=== PATIENT | male | born 1930 | race Caucasian/White ===

== ENCOUNTER → 2017-11-02 | Day surgery (SDC) | payer OTHER ==
[2017-10-26 13:28] LABS: URINE BILIRUBIN NEGATIVE (Negative); URINE BLOOD 2+ (Negative); URINE CLARITY CLEAR; URINE COLOR YELLOW; URINE GLUCOSE-RANDOM NEGATIVE (Negative); URINE KETONES NEGATIVE (Negative); URINE NITRITE-REFLEX NEGATIVE (Negative); URINE PROTEIN TRACE (Negative); URINE SPECIFIC GRAVITY >= 1.030 (1.005-1.030); URINE UROBILINOGEN 0.2 E.U./dl (0.2-1.0)
[2017-10-26 13:29] LABS: URINE LEUKOCYTES-REFLEX 2+ (Negative)
[2017-10-26 13:33] LABS: BACTERIA-REFLEX >30 Many /HPF (None Seen); SQUAMOUS 0-3 Few /LPF (0-3); URINE WBC-REFLEX >25 Many /HPF (0-5)
[2017-10-26 13:34] LABS: CASTS None Seen /LPF (None Seen); CRYSTALS None Seen /LPF (None Seen); MUCUS None Seen strn/LPF (None Seen)
[2017-10-26 13:39] LABS: ABSOLUTE BASOPHILS 0.1 thou/uL (0.0-0.2); ABSOLUTE EOSINOPHILS 0.3 thou/uL (0.0-0.7); ABSOLUTE LYMPHOCYTES 1.4 thou/uL (0.8-5.3); ABSOLUTE MONOCYTES 0.5 thou/uL (0.0-1.2); ABSOLUTE NEUTROPHILS 4.7 thou/uL (1.6-8.1); BASOPHILS 0.8 %; EOSINOPHILS 4.1 %; HEMATOCRIT 33.4 % (42.0-52.0); HEMOGLOBIN 11.3 gm/dL (14.0-18.0); LYMPHOCYTES 20.5 %; MCH 30.8 pg (26.0-34.0); MCHC 33.9 g/dL (28.0-37.0); MONOCYTES 7.2 %; MPV 8.3 fl. (7.2-11.1); NUCLEATED RBCS 0 /100WBC; PLATELET COUNT* 199 thou/uL (150-400); POLYS 67.4 %; RBC 3.67 mil/uL (4.50-6.00); RDW-CV 14.7 % (10.5-14.5); WBC 6.9 thou/uL (4.0-11.0)
[2017-10-26 13:46] LABS: CALCIUM 9.5 mg/dL (8.5-10.1); CREATININE 1.1 mg/dL (0.6-1.3); POTASSIUM 4.1 mmol/L (3.5-5.1)
[~2017-11-02] MED LIST: ASPIRIN325 PO; AUGMENTIN 875-1 EACH PO; BACTRIM DS TAB1 EAC1 PO; BACTRIM DS TAB1 EACH PO; BROMSITE5 ML OPHTHALMIC; CEFUROXIME250 MG PO; CENTRUM SILVER1 EAC4 PO; CHLORTHALIDONE25 MG PO; CHLORTHALIDONE50 MG PO; CINNAMON500 MG PO; CITRACAL SOFT1 EACH PO; DIFLUCAN200 MG PO; FLOMAX0.4 MG PO; FOLIC ACID1 MG PO; GARLIC500 M1 PO; HYDROCODONE-AP1 EAC6 PO; IRON325 M1 PO; KEFLEX500 MG PO; LEVSIN0.125 MG SUBLING; LIPITOR 20 MG T20 M1 PO; LOPRESSOR25 PO; LOVASTAT20 PO; MILK THISTLE500 MG PO; MOBIC7.5 MG PO; NEURONTIN 300300 M1 PO; NORCO 5-325 TA1 EAC1 PO; OMEGA-31000 M1 PO; PHENAZOPYRIDIN200 M2 PO; PRED FORTE 1% EY5 M1 OP; PRED FORTE 1% EY5 M1 OPHTHALMIC; PREVAGEN PO; PROBIOTIC1 EAC1 PO; PROSCAR 5MG TABL5 MG PO; RED YEAST RICE600 MG PO; SENNA S TABLET1 EACH PO; SORINE 80 MG TA80 M1 PO; SORINE 80 MG TA80 MG PO; TRAMADOL 50 MG50 MG PO; TYLENOL EXTRA500 MG PO; TYLENOL325 MG PO; VITAMIN B COMP1 EACH PO; VITAMIN B-12500 MCG PO; VITAMIN D-32000 UNIT PO
--- NOTE | ~2017-11-02 | OP ---
[address] [address] OPERATIVE REPORT Name: KATJA GUARDADO Room: [facility]#: [id number] Admission: 11/02/17 Attend Phys: Kai Mcmillan MD Discharge: Date of : 32 Report #: [id number] THIS REPORT FOR: //name// For operative report details, please see the post operative note. By: 0610Medical Records Staff SATURNINO /DAVID
== END | disposition home or self-care (01) ==
LOC: M.SUR 06:45
PROVIDERS: Urology
DX: N40.1 Benign prostatic hyperplasia with lower urinary tract symptoms (principal); I25.2 Old myocardial infarction; Z85.038 Personal history of other malignant neoplasm of large intestine; Z98.890 Other specified postprocedural states; Z79.899 Other long term (current) drug therapy; Z79.82 Long term (current) use of aspirin; Z79.891 Long term (current) use of opiate analgesic

== ENCOUNTER 2017-11-04 14:20 | Inpatient (IN) | payer OTHER ==
[~2017-11-04] VITALS: Ht 172.7 cm; Wt 63.5 kg
[~2017-11-04 14:20] MED LIST changes: -AUGMENTIN 875-1 EACH PO; -NEURONTIN 300300 M1 PO; -PROBIOTIC1 EAC1 PO; -SENNA S TABLET1 EACH PO
[2017-11-04 14:21] VITALS: BP 225/99
[2017-11-04 14:57] LABS: HEMATOCRIT 38.2 % (42.0-52.0); HEMOGLOBIN 12.8 gm/dL (14.0-18.0); MCH 30.1 pg (26.0-34.0); MCHC 33.6 g/dL (28.0-37.0); MCV 89.7 fL (80.0-100.0); MPV 8.8 fl. (7.2-11.1); NUCLEATED RBCS 0 /100WBC; PLATELET COUNT* 187 thou/uL (150-400); RBC 4.26 mil/uL (4.50-6.00); WBC 13.8 thou/uL (4.0-11.0)
[2017-11-04 15:04] LABS: ANION GAP 11 mmol/L (7-16); BUN 29 mg/dL (7-18); CALCIUM 9.7 mg/dL (8.5-10.1); CHLORIDE 98 mmol/L (98-107); CO2 22 mmol/L (21-32); CREATININE 1.6 mg/dL (0.6-1.3); GLUCOSE 170 mg/dL (70-99); POTASSIUM 4.3 mmol/L (3.5-5.1); SODIUM 131 mmol/L (136-145)
[2017-11-04 15:11] LABS: ALBUMIN 3.8 g/dL (3.4-5.0); ALKALINE PHOSPHATASE 98 U/L (46-116); LIPASE 111 U/L (73-393); SGOT 22 U/L (15-37); SGPT 18 U/L (30-65); TOTAL BILIRUBIN 1.1 mg/dL (<0.1-1.0); TOTAL PROTEIN 7.7 g/dL (6.4-8.2); TROPONIN-I LEVEL <0.06 ng/mL (<0.06)
[2017-11-04 15:24] LABS: ABSOLUTE BASOPHILS 0.1 thou/uL (0.0-0.2); ABSOLUTE EOSINOPHILS 0.3 thou/uL (0.0-0.7); ABSOLUTE LYMPHOCYTES 0.6 thou/uL (0.8-5.3); ABSOLUTE MONOCYTES 0.4 thou/uL (0.0-1.2); ABSOLUTE NEUTROPHILS 12.4 thou/uL (1.6-8.1)
[2017-11-04 15:25] LABS: MACROCYTES Occasional; PLATELET ESTIMATE ADEQUATE
--- NOTE | 2017-11-04 15:38 | NUR ---
CT COMPLETED PT RETURNED TO ED
[2017-11-04 16:26] LABS: URINE BILIRUBIN NEGATIVE (Negative); URINE BLOOD 3+ (Negative); URINE CLARITY CLEAR; URINE COLOR YELLOW; URINE GLUCOSE-RANDOM NEGATIVE (Negative); URINE KETONES NEGATIVE (Negative); URINE LEUKOCYTES-REFLEX 1+ (Negative); URINE NITRITE-REFLEX NEGATIVE (Negative); URINE PROTEIN 2+ (Negative); URINE UROBILINOGEN 0.2 E.U./dl (0.2-1.0)
[2017-11-04 16:41] LABS: CASTS None Seen /LPF (None Seen); CRYSTALS None Seen /LPF (None Seen); MUCUS 0-3 Light strn/LPF (None Seen); SQUAMOUS 0-3 Few /LPF (0-3); URINE WBC-REFLEX 6-15 Few /HPF (0-5); YEAST-REFLEX Present (None Seen)
[2017-11-04 17:17] VITALS: BP 133/50
[2017-11-04 17:56] VITALS: BP 134/49
--- NOTE | 2017-11-04 18:31 | NUR ---
PATIENT CAME FROM THE ER VIA CART IN STABLE CONDITION. VITAL SIGNS STABLE ON ROOM AIR, NO COMPLAINTS OF ANY PAIN AT THIS TIME. IV IN RIGHT AC WORKS WELL WITH FLUIDS RUNNING AND ANTIBIOTICS. CLARK IN PLACE DRAINING YELLOW URINE. COLOSTOMY IN PLACE. PATIENT IS ALERT AND ORIENTED, IS AT BEDSIDE. CALL LIGHT IS IN REACH, ADMISSION ASSESSMENT AND EDUCATION DONE. WILL CONTINUE TO MONITOR.
[2017-11-04 20:00] VITALS: BP 119/46
[2017-11-05] VITALS (8 sets, daily range): BP systolic 129–159; BP diastolic 45–65
--- NOTE | 2017-11-05 05:31 | NUR ---
PT SLEPT SOUNDLY DURING THE NIGHT, NEW IV PLACED LAST NIGHT, IV FLUIDS INFUSED, PLEASANT, HARD OF HEARING , COLOSTOMY IN PLACE, SCD'S ON, CALL LIGHT IN REACH, BED ALARM ON FOR SAFETY, WILL CONTINUE TO MONITOR
--- NOTE | 2017-11-05 12:20 | EKG ---
[place] [address] ELECTROCARDIOGRAM REPORT Name: DEBBYKATJA Room: [address] ADM IN M.R.#: [id number] Admission: 11/04/17 Attend Phys: Chino Paiz, Discharge: Date of : 31 Report #: [id number] THIS REPORT FOR: //name// [facility] ED Test Date: 2017-11-04 Test Time: 14:39:03 Pat Name: KATJA GUARDADO Department: Room: [facility] Gender: M Shift Supervisor Melting: JIM : 1930 Requested By: Liliana Palmer Order Number: [id number] MD: Raudel Antoine Measurements Intervals [place] Rate: 96 P: [place]: QRS: -67 QRSD: 129 T: 48 QT: 391 QTc: 495 Interpretive Statements sinus rhythm Ventricular premature complex RBBB and LAFB Compared to ECG 09/06/2017 14:21:33 Ventricular premature complex(es) now present Atrial premature complex(es) no longer present Electronically Signed On 11-05-2017 12:20:00 PLUG CUTTING MACHINE OPERATOR by Raudel Antoine [email or web address] <ELECTRONICALLY SIGNED> By: Raudel Antoine MD, FAC 11/05/17 1220 1439 1439 Raudel Antoine MD, [facility] /EPI
[2017-11-05 15:30] LABS: MCH 31.4 pg (26.0-34.0); MCHC 34.4 g/dL (28.0-37.0); MCV 91.1 fL (80.0-100.0); RBC 3.51 mil/uL (4.50-6.00); WBC 6.5 thou/uL (4.0-11.0)
[2017-11-05 15:40] LABS: CALCIUM 9.3 mg/dL (8.5-10.1); CREATININE 1.4 mg/dL (0.6-1.3); POTASSIUM 4.2 mmol/L (3.5-5.1)
--- NOTE | 2017-11-05 18:19 | NUR ---
PATIENT IS ALERT AND ORIENTED NO COMPLAINTS OF ANY KIND TODAY. CLARK IS DRAINING WELL, LIGHT YELLOW URINE. VITAL SIGNS ARE STABLE ON ROOM AIR. SURGERY CONSULTED ON [facility] AND SAID THEY WOULD FOLLOW UP OUTPATIENT IT DOES NOT NEED ADDRESSED INPATIENT. COLOSTOMY IN PLACE. CALL LIGHT IS IN REACH, WILL CONTINUE TO MONITOR.
[2017-11-06] VITALS: BP 148/52
[2017-11-06 03:45] VITALS: BP 148/53
[2017-11-06 04:27] LABS: HEMATOCRIT 30.9 % (42.0-52.0); HEMOGLOBIN 10.6 gm/dL (14.0-18.0); MCH 30.9 pg (26.0-34.0); MCHC 34.4 g/dL (28.0-37.0); MCV 89.9 fL (80.0-100.0); MPV 9.3 fl. (7.2-11.1); RBC 3.44 mil/uL (4.50-6.00); RDW-CV 14.8 % (10.5-14.5); WBC 6.5 thou/uL (4.0-11.0)
[2017-11-06 04:39] LABS: CALCIUM 9.1 mg/dL (8.5-10.1); CREATININE 1.1 mg/dL (0.6-1.3); MAGNESIUM 1.8 mg/dL (1.8-2.4)
--- NOTE | 2017-11-06 05:56 | NUR ---
ASSESSMENT COMPLETE. PT SLEPT THROUGH THE NIGHT WITHOUT ANY CONCERNS. PT IS VERY HARD OF HEARING. PT DENIES PAIN AND N/V. PT IS ON ROOM AIR WITH [place] SATS. PT HAS 2 IV'S SALINE LOCKED. PT IS ON TELE MONITOR, NSR. PT HAS COLOSTOMY AND CLARK, EMPTIED NEEDED DURING THE NIGHT. PT IS FALL RISK, BED ALARM ON. PT IS UP ONE ASSIST WITH GAIT BELT. PT TURNS SELF IN BED. SEE ASSESSMENT AND VITALS FOR OTHER DETAILS. CALL LIGHT WITHIN REACH, WILL CONTINUE TO MONITOR
[2017-11-06 08:30] VITALS: BP 173/63
[2017-11-06 12:24] VITALS: BP 154/65
[2017-11-06 13:50] VITALS: BP 154/65
--- NOTE | 2017-11-06 13:52 | NUR ---
HERNAN met with pt, pt , and pt dtr to complete assessment and then also discuss dc planning. Pt to dc home with and HH services to follow. Pt has a cane and according to PT, pt family expressed pt not willing to use rolling walker. Pt/pt preference for [facility] services. Pt also with a history of [facility]. SW called [facility] [phone] and faxed referral and orders to fax [phone] and they accepted referral. Pt family here to be able to provide pt ride home.
[2017-11-06 14:27] VITALS: BP 154/65
--- NOTE | 2017-11-06 14:45 | NUR ---
PATIENT IS ALERT AND ORIENTED TODAY VERY PLEASANT. CLARK IN PLACE DRAINING LIGHT YELLOW URINE. NO COMPLAINTS OF ANY KIND TODAY. PATIENT IS BEING DISCHARGED TO HOME WITH HOME HEALTH AND CLARK IN PLACE, PER ORDERS. DISCHARGE INSTRUCTIONS GIVEN AND QUESTIONS ANSWERED FOR FAMILY AND PATIENT. LEFT VIA WHEEL CHAIR WITH NURSING STAFF TO GO HOME WITH HOME HEALTH.
[2018-07-25] MEDS ORDERED: NEURONTIN 300300 M1 PO (09:30)
[2018-07-25] MEDS ORDERED: HYDROCODONE-AP1 EAC6 PO (09:30)
[2018-07-25] MEDS ORDERED: SENNA S TABLET1 EACH PO (09:30)
== END 2017-11-06 14:47 | disposition home or self-care (01) | DRG 853 ==
LOC: M.ERS 14:20 → M.TBA-ER 16:12 → M.3W 16:12
PROVIDERS: Physician Assistant; ADMIT Family Medicine
PROC: 0V508ZZ Destruction of Prostate, Via Natural or Artificial Opening Endoscopic (ICD-10-PCS; principal; 2017-11-02)
DX: A41.9 Sepsis, unspecified organism (principal); G93.41 Metabolic encephalopathy; N17.0 Acute kidney failure with tubular necrosis; N13.30 Unspecified hydronephrosis; N39.0 Urinary tract infection, site not specified; N13.8 Other obstructive and reflux uropathy; N32.0 Bladder-neck obstruction; R65.10 Systemic inflammatory response syndrome (SIRS) of non-infectious origin without acute organ dysfunction; N40.1 Benign prostatic hyperplasia with lower urinary tract symptoms; E78.5 Hyperlipidemia, unspecified; I16.0 Hypertensive urgency; F03.90 Unspecified dementia, unspecified severity, without behavioral disturbance, psychotic disturbance, mood disturbance, and anxiety; R33.9 Retention of urine, unspecified; I48.91 Unspecified atrial fibrillation; R31.9 Hematuria, unspecified; N18.9 Chronic kidney disease, unspecified; I11.0 Hypertensive heart disease with heart failure; K42.9 Umbilical hernia without obstruction or gangrene; K40.91 Unilateral inguinal hernia, without obstruction or gangrene, recurrent; Z82.49 Family history of ischemic heart disease and other diseases of the circulatory system; Z90.49 Acquired absence of other specified parts of digestive tract; Z98.42 Cataract extraction status, left eye; Z98.41 Cataract extraction status, right eye; Z93.3 Colostomy status; Z87.891 Personal history of nicotine dependence; Z79.899 Other long term (current) drug therapy; Z79.82 Long term (current) use of aspirin

== ENCOUNTER 2017-11-18 14:38 | Inpatient (IN) | payer OTHER ==
[~2017-11-18] VITALS: Ht 162.6 cm; Wt 63.5 kg
[2017-11-18 14:40] VITALS: BP 112/56
[2017-11-18 15:14] LABS: HEMATOCRIT 32.7 % (42.0-52.0); HEMOGLOBIN 11.2 gm/dL (14.0-18.0); MCH 30.6 pg (26.0-34.0); MCHC 34.2 g/dL (28.0-37.0); MCV 89.4 fL (80.0-100.0); MPV 7.6 fl. (7.2-11.1); NUCLEATED RBCS 0 /100WBC; PLATELET COUNT* 233 thou/uL (150-400); RBC 3.66 mil/uL (4.50-6.00); RDW-CV 14.2 % (10.5-14.5); WBC 9.6 thou/uL (4.0-11.0)
[2017-11-18 15:22] LABS: CALCIUM 9.5 mg/dL (8.5-10.1); CREATININE 1.3 mg/dL (0.6-1.3); POTASSIUM 4.3 mmol/L (3.5-5.1)
[2017-11-18 15:32] LABS: ALBUMIN 3.2 g/dL (3.4-5.0); TOTAL BILIRUBIN 0.6 mg/dL (<0.1-1.0); TOTAL PROTEIN 7.2 g/dL (6.4-8.2)
[2017-11-18 15:42] LABS: ABSOLUTE LYMPHOCYTES 0.4 thou/uL (0.8-5.3); ABSOLUTE MONOCYTES 0.6 thou/uL (0.0-1.2); ABSOLUTE NEUTROPHILS 8.6 thou/uL (1.6-8.1); METAMYELOCYTES 1 %
[2017-11-18 15:43] LABS: PLATELET ESTIMATE ADEQUATE
[2017-11-18 16:28] LABS: URINE BILIRUBIN NEGATIVE (Negative); URINE BLOOD 2+ (Negative); URINE CLARITY CLEAR; URINE COLOR YELLOW; URINE GLUCOSE-RANDOM NEGATIVE (Negative); URINE KETONES NEGATIVE (Negative); URINE LEUKOCYTES-REFLEX 2+ (Negative); URINE NITRITE-REFLEX NEGATIVE (Negative); URINE PROTEIN TRACE (Negative); URINE SPECIFIC GRAVITY 1.025 (1.005-1.030); URINE UROBILINOGEN 0.2 E.U./dl (0.2-1.0)
[2017-11-18 16:41] LABS: URINE WBC-REFLEX >25 Many /HPF (0-5); WBC CLUMPS Few (None Seen); YEAST-REFLEX Present (None Seen)
[2017-11-18 16:43] LABS: URINE RBC 3-10 Few /HPF (0-2)
[2017-11-18 16:44] LABS: CASTS None Seen /LPF (None Seen); MUCUS None Seen strn/LPF (None Seen); SQUAMOUS NONE SEEN /LPF (0-3)
[2017-11-18 16:45] LABS: AMORPHOUS URATES Few /LPF (None Seen)
[2017-11-18 18:26] VITALS: BP 128/48
[2017-11-18 18:51] VITALS: BP 119/67
[2017-11-18 19:40] VITALS: BP 131/49
[2017-11-19] VITALS: BP 101/44
--- NOTE | 2017-11-19 03:41 | NUR ---
ADMIT TO 2 EAST AT SHIFT CHG. PT ALERT ORIENTED TO SELF AND PLACE. PHONED FOR ASSISTANCE WITH MEDICATION RECONSILIATION. TELEMETRY SHOWS SR BBB. COLOSTOMY WITH DARK BROWN. CLARK WITH CLOUDY YELLOW. DENIES PAIN. WILL CONTINUE TO MONITOR.
[2017-11-19 04:13] VITALS: BP 100/56
[2017-11-19 05:07] LABS: HEMATOCRIT 29.1 % (42.0-52.0); HEMOGLOBIN 9.8 gm/dL (14.0-18.0); MCH 30.4 pg (26.0-34.0); MCHC 33.8 g/dL (28.0-37.0); MCV 89.9 fL (80.0-100.0); RBC 3.24 mil/uL (4.50-6.00); RDW-CV 14.2 % (10.5-14.5); WBC 5.2 thou/uL (4.0-11.0)
[2017-11-19 05:34] LABS: CREATININE 1.2 mg/dL (0.6-1.3); MAGNESIUM 1.8 mg/dL (1.8-2.4); POTASSIUM 4.4 mmol/L (3.5-5.1)
[2017-11-19 09:00] VITALS: BP 135/44
--- NOTE | 2017-11-19 10:38 | NUR ---
ASSUMED PT CARE AT 0700 PT IS ALERT AND ORIENTED X 2 PT IS A FALL RISK BED ALARM IS ON PT DENIES PAIN OR SOA, PT CAN FEED SELF AND MOVES IN BED NEEDS ENCOURAGEMENT, PT IS NOT IMPULSIVE, PT IS PLEASANT AND COOPERATIVE, PT IS SR BBB ON THE MONITOR, PT HAS COLOSTOMY BAG, WILL CONTINUE TO MONITOR
[2017-11-19 12:00] VITALS: BP 131/53
--- NOTE | 2017-11-19 12:38 | EKG ---
[place] [address] ELECTROCARDIOGRAM REPORT Name: MIHIR GUARDADOPAMELA Flores Room: [address] ADM IN M.R.#: [id number] Admission: 11/18/17 Attend Phys: Chino Paiz, Discharge: Date of : 31 Report #: [id number] THIS REPORT FOR: //name// [facility] ED Test Date: 2017-11-18 Test Time: 14:43:36 Pat Name: KATJA GUARDADO Department: Room: [address] Gender: M Lead Advisor: Josué ZAYAS : 1930 Requested By: Liliana Palmer Order Number: [id number] MD: Blanco Reno Measurements Intervals [place] Rate: 83 P: 22 MS: 160 QRS: -70 QRSD: 138 T: 44 QT: 378 QTc: 445 Interpretive Statements Sinus rhythm RBBB and LAFB Compared to ECG 11/04/2017 14:39:03 Ventricular premature complex(es) no longer present Electronically Signed On 11-19-2017 12:38:44 SIMULATION DEVELOPER by Blanco Reno [email or web address] <ELECTRONICALLY SIGNED> By: Cirilo Reno MD, [facility] 11/19/17 1238 1443 1443 Cirilo Reno MD, [facility] /EPI
[2017-11-19 16:33] VITALS: BP 135/53
[2017-11-19 20:00] VITALS: BP 116/57
[2017-11-20] VITALS (7 sets, daily range): BP systolic 113–156; BP diastolic 43–62
--- NOTE | 2017-11-20 02:52 | NUR ---
PT ALERT ORIENTED. [place] WEARS [place] HEARING AIDS. TELEMETRY SHOWS SR BBB. NS AT 100MLS/HR. CLARK WITH CLOUDY YELLOW. COLOSTOMY WITH BROWN. WILL CONTINUE TO MONITOR.
[2017-11-20 05:22] LABS: HEMATOCRIT 26.4 % (42.0-52.0); HEMOGLOBIN 9.1 gm/dL (14.0-18.0); MCH 30.7 pg (26.0-34.0); MCHC 34.4 g/dL (28.0-37.0); MCV 89.3 fL (80.0-100.0); MPV 7.9 fl. (7.2-11.1); RBC 2.96 mil/uL (4.50-6.00); RDW-CV 14.2 % (10.5-14.5)
[2017-11-20 06:00] LABS: CALCIUM 8.5 mg/dL (8.5-10.1); CREATININE 1.1 mg/dL (0.6-1.3); MAGNESIUM 1.7 mg/dL (1.8-2.4); POTASSIUM 4.1 mmol/L (3.5-5.1)
--- NOTE | 2017-11-20 09:34 | NUR ---
ASSUMED CARE OF PT THIS AM AROUND 0715- DEALER ACCOUNT MANAGER IN PLACE ORDERED, TRACING SR WITH BBB- UPON ASSESSMENT PT NOTED TO BE RESTING IN BED, WATCHING TV- PT A&O X2 WITH INTERMEDIATE CONFUSION NOTED- CLARK IN PLACE D/D CLEAR YELLOW URINE, COLOSTOMY IN PLACE TO RLQ WITH DARK/BROWN LOOSE STOOL NOTED- ASSIST X1 WITH TRANSFERS NOTED- LCTA, DIMINISHED IN BASES- VSS, O2 SAT 92% ON RA- DENIES DYSPNEA- ABDOMEN SOFT/FLAT/NON-TENDER, BS ACTIVE- IV NOTED TO RIGHT FA INTACT AND SL, IVF D/C'D THIS AM- IV ABT GIVEN PRESCIBED, NO ADVERSE REACTIONS TO NOTE- PT DENIES ANY C/O PAIN/DISCOMFORT AT THIS TIME- GOOD PO INTAKE NOTED THIS AM WITH BREAKFAST- CALL LIGHT AND PERSONAL BELONGINGS WITH IN REACH- HOURLY ROUNDS IN PLACE R/T SAFETY/NEEDS- ALL NEEDS MET AT THIS TIME-WCTM
--- NOTE | 2017-11-20 14:58 | NUR ---
CM ASSESSMENT: Pt is A&O. Resides at home with his . in room at bedside. Pt states that he uses a cane for mobility. states that Pt is pretty independent, but states that he hasn't been driving recently. Current with [facility] p:[phone]. Hx of [facility]. informed that their dtr has been staying with them recently, to assist. Goal is to return home, but if Pt needs skilled, would like him to go to [facility]. Following for dc needs.
--- NOTE | 2017-11-20 17:08 | NUR ---
PT CURRENTLY RESTING IN BED, WATCHING TV- SOCK KNITTING MACHINE OPERATOR CONTINUED ORDERED, TRACING SR WITH BBB- IV TO RIGHT FA INTACT AND SL- GOOD PO INTAKE NOTED WITH MEALS- UA CULTURE RESULTED POSITIVE FOR > 100,000 GRAM POSITIVE COCCI- RESULTS CALLED TO WITH ORDERS RECIEVED TO D/C LEVAQUIN AND CONTINUE ROCEPHIN- COLOSTOMY EMPTIED X1 THIS SHIFT WITH 100CC OUTPUT OF BROWN LOOSE STOOL- CLARK CONTINUED D/D, 1650 OUTPUT NOTED THIS SHIFT- PT DENIES ANY C/O PAIN/DISCOMFORT AT THIS TIME- CALL LIGHT AND PERSONAL BELONGINGS WITH IN REACH- PT MAKEES NEEDS KNOWN- ALL NEEDS MET AT THIS TIME-WCTM
[2017-11-21 04:00] VITALS: BP 145/62
--- NOTE | 2017-11-21 04:47 | NUR ---
ASSUMED CARE OF PT AT 1900 PT ALERT AND ORIENTED X2 VS AND ASSESSMENT STABLE. PT VOICED NO COMPLAINTS AND SLEPT THROUGH THE NIGHT. WILL MONITOR
--- NOTE | 2017-11-21 08:00 | NUR ---
RECEIVED REPORT. ASSUMED CARE OF PT AT 0730. VSS. CARDIAC MONTIORING IN PLACE SR WITH BBB. AM ASSESSMENT AND VITALS COMPLETED CHARTED. PT ALERT AND ORIENTED TO PERSON ONLY. PT IS CONFUSED AND FORGETFUL. PT ON RA. IV SALINE LOCKED. PT DENEIS ANY COMPLAINTS OF PAIN OR DISCOMFORT. CLARK IN PLACE FOR RETENTION. PT INFORMED OF PLAN OF CARE. BED ALARM ON FOR PT SAFETY. CALL LIGHT IS WITHIN REACH. WILL CONTINUE TO MONITOR FOR DURAITON OF SHIFT.
[2017-11-21 08:33] VITALS: BP 113/62
[2017-11-21] MEDS ORDERED: AUGMENTIN 875-1 EACH PO (10:22)
[2017-11-21] MEDS ORDERED: PROBIOTIC1 EAC1 PO (10:29)
[2017-11-21 10:44] VITALS: BP 113/62
[2017-11-21 11:35] VITALS: BP 104/58
--- NOTE | 2017-11-21 13:39 | NUR ---
Pt discharging to home today, faxed resumption orders to [facility]. to provide dc transportation
--- NOTE | 2017-11-21 13:46 | NUR ---
DISCHARGE ORDERS RECEIVED AND PREPARED. IV AND CARDIAC MONITORING DISCONTINUED. PT AND SPOUSE EDUCATED ON DISCHARGE INSTRCTUIONS. ALL QUESTIONS AND CONCERNS ANSWERED AT THIS TIME. PT GIVEN COPY OF DISCHARGE PAPERWORK. PT'S SCRIPT SENT TO [facility] ELECTRONICALLY. PT'S PERSONAL BELONGINGS GATHERED AND SENT HOME WITH PT. PT ESCORTED OFF UNIT WITH NURSING STAFF. PT LEFT IN PRIVATE VEHICLE.
[2018-07-25] MEDS ORDERED: HYDROCODONE-AP1 EAC6 PO (09:30)
[2018-07-25] MEDS ORDERED: SENNA S TABLET1 EACH PO (09:30)
[2018-07-25] MEDS ORDERED: NEURONTIN 300300 M1 PO (09:30)
== END 2017-11-21 13:48 | disposition home health service (06) | DRG 871 ==
LOC: M.ERS 14:38 → M.2W 16:07 → M.TBA-ER 16:07 → M.2W 18:37
PROVIDERS: Emergency Medicine Emergency Medical Services; Physician Assistant; ADMIT Family Medicine
DX: A41.9 Sepsis, unspecified organism (principal); G92 Toxic encephalopathy; N39.0 Urinary tract infection, site not specified; J98.11 Atelectasis; E78.5 Hyperlipidemia, unspecified; Z90.49 Acquired absence of other specified parts of digestive tract; D64.9 Anemia, unspecified; B95.2 Enterococcus as the cause of diseases classified elsewhere; G93.89 Other specified disorders of brain; Z98.42 Cataract extraction status, left eye; Z98.41 Cataract extraction status, right eye; Z93.3 Colostomy status; Z79.899 Other long term (current) drug therapy; Z79.82 Long term (current) use of aspirin; Z82.49 Family history of ischemic heart disease and other diseases of the circulatory system; Z87.891 Personal history of nicotine dependence

== ENCOUNTER → 2018-07-18 | Outpatient (CLI) | payer OTHER ==
[~2018-07-18] MED LIST changes: +AUGMENTIN 875-1 EACH PO; +NEURONTIN 300300 M1 PO; +PROBIOTIC1 EAC1 PO; +SENNA S TABLET1 EACH PO
[2018-07-18 13:01] LABS: ABSOLUTE EOSINOPHILS 0.3 thou/uL (0.0-0.7); ABSOLUTE LYMPHOCYTES 1.5 thou/uL (0.8-5.3); ABSOLUTE MONOCYTES 0.6 thou/uL (0.0-1.2); ABSOLUTE NEUTROPHILS 3.4 thou/uL (1.6-8.1); BASOPHILS 0.6 %; EOSINOPHILS 5.5 %; HEMATOCRIT 33.5 % (42.0-52.0); HEMOGLOBIN 11.5 gm/dL (14.0-18.0); LYMPHOCYTES 25.7 %; MCH 31.7 pg (26.0-34.0); MCHC 34.2 g/dL (28.0-37.0); MCV 92.8 fL (80.0-100.0); MONOCYTES 9.5 %; MPV 8.4 fl. (7.2-11.1); NUCLEATED RBCS 0 /100WBC; PLATELET COUNT* 158 thou/uL (150-400); POLYS 58.7 %; RBC 3.61 mil/uL (4.50-6.00); RDW-CV 13.2 % (10.5-14.5); WBC 5.8 thou/uL (4.0-11.0)
[2018-07-18 13:07] LABS: CALCIUM 9.4 mg/dL (8.5-10.1); CREATININE 0.9 mg/dL (0.6-1.3)
--- NOTE | 2018-07-18 14:13 | EKG ---
[place] [address] ELECTROCARDIOGRAM REPORT Name: KATJA GUARDADO Room: [facility]#: [id number] Admission: 07/18/18 Attend Phys: Emmanuel Collins MD, Discharge: Date of : 31 Report #: [id number] THIS REPORT FOR: //name// [facility] Test Date: 2018-07-18 Test Time: 13:40:48 Pat Name: KATJA GUARDADO Department: Room: Gender: M Outside Sales: : 1930 Requested By: Emmanuel Collins Order Number: [id number] MD: Raudel Antoine Measurements Intervals [place] Rate: 53 P: -46 ND: 193 QRS: -59 QRSD: 133 T: 31 QT: 473 QTc: 445 Interpretive Statements Sinus rhythm Atrial premature complex RBBB and LAFB Compared to ECG 11/18/2017 14:43:36 Atrial premature complex(es) now present Electronically Signed On 07-18-2018 14:13:38 CDT by Raudel Antoine [email or web address] <ELECTRONICALLY SIGNED> By: Raudel Antoine MD, [facility] 07/18/18 1413 1340 134 Raudel Antoine MD, [facility]AC /EPI
== END ==
LOC: M.LAB 12:33
PROVIDERS: Surgery
DX: Z01.818 Encounter for other preprocedural examination (principal)

== ENCOUNTER 2019-02-27 14:22 | Emergency (ER) | payer OTHER ==
[~2019-02-27] VITALS: Ht 162.6 cm; Wt 63.5 kg
[2019-02-27 16:27] VITALS: BP 176/65
== END 2019-02-27 16:20 | disposition home or self-care (01) ==
LOC: M.ERS 14:22
DX: S42.402A Unspecified fracture of lower end of left humerus, initial encounter for closed fracture (principal); S00.83XA Contusion of other part of head, initial encounter; E78.5 Hyperlipidemia, unspecified; I48.91 Unspecified atrial fibrillation; I10 Essential (primary) hypertension; Z86.2 Personal history of diseases of the blood and blood-forming organs and certain disorders involving the immune mechanism; W18.39XA Other fall on same level, initial encounter; Y92.89 Other specified places as the place of occurrence of the external cause; Y93.89 Activity, other specified; Y99.8 Other external cause status

== ENCOUNTER 2019-03-25 17:35 | Emergency (ER) | payer OTHER ==
[~2019-03-25] VITALS: Ht 162.6 cm; Wt 65.3 kg
[2019-03-25] MEDS ORDERED: NAMZARIC 14 MG1 EACH PO (17:45)
[2019-03-25 18:20] LABS: ABSOLUTE EOSINOPHILS 0.2 thou/uL (0.0-0.7); ABSOLUTE LYMPHOCYTES 1.4 thou/uL (0.8-5.3); ABSOLUTE MONOCYTES 0.6 thou/uL (0.0-1.2); BASOPHILS 0.8 %; EOSINOPHILS 2.7 %; HEMATOCRIT 31.6 % (42.0-52.0); HEMOGLOBIN 10.9 gm/dL (14.0-18.0); MCH 31.6 pg (26.0-34.0); MCHC 34.6 g/dL (28.0-37.0); MCV 91.5 fL (80.0-100.0); MONOCYTES 9.4 %; MPV 8.9 fl. (7.2-11.1); NUCLEATED RBCS 0 /100WBC; PLATELET COUNT* 197 thou/uL (150-400); POLYS 65.1 %; RBC 3.46 mil/uL (4.50-6.00); RDW-CV 13.8 % (10.5-14.5); WBC 6.2 thou/uL (4.0-11.0)
[2019-03-25 18:21] LABS: PO2 83.4 mmHg (75.0-100.0); pH 7.432 (7.340-7.450)
[2019-03-25 18:24] LABS: PROTIME 10.7 Seconds (9.20-11.50)
[2019-03-25 18:25] LABS: ANION GAP 10 mmol/L (7-16); BUN 29 mg/dL (7-18); CALCIUM 9.6 mg/dL (8.5-10.1); CHLORIDE 105 mmol/L (98-107); CO2 26 mmol/L (21-32); CREATININE 1.1 mg/dL (0.6-1.3); GLUCOSE 196 mg/dL (70-99); POTASSIUM 3.9 mmol/L (3.5-5.1); SODIUM 141 mmol/L (136-145)
[2019-03-25 18:34] LABS: ALBUMIN 3.2 g/dL (3.4-5.0); ALKALINE PHOSPHATASE 97 U/L (46-116); MAGNESIUM 1.6 mg/dL (1.8-2.4); SGOT 21 U/L (15-37); SGPT 22 U/L (30-65); TOTAL BILIRUBIN 0.6 mg/dL (<0.1-1.0); TOTAL PROTEIN 6.7 g/dL (6.4-8.2); TROPONIN-I LEVEL <0.06 ng/mL (<0.06)
[2019-03-25 18:40] LABS: SALICYLATE < 2.8 mg/dL (2.8-20.0)
[2019-03-25 18:41] LABS: ACETAMINOPHEN < 2 ug/mL (10-30)
[2019-03-25 21:50] LABS: URINE BILIRUBIN NEGATIVE (Negative); URINE BLOOD NEGATIVE (Negative); URINE CLARITY CLEAR; URINE COLOR YELLOW; URINE GLUCOSE-RANDOM NEGATIVE (Negative); URINE KETONES NEGATIVE (Negative); URINE LEUKOCYTES-REFLEX NEGATIVE (Negative); URINE NITRITE-REFLEX NEGATIVE (Negative); URINE PROTEIN NEGATIVE (Negative); URINE SPECIFIC GRAVITY 1.025 (1.005-1.030); URINE UROBILINOGEN 0.2 E.U./dl (0.2-1.0)
[2019-03-26 08:14] LABS: AMP/METHAMP Negative (Negative); BARBITURATES Negative (Negative); BENZODIAZEPINES Negative (Negative); COCAINE Negative (Negative); METHADONE Negative (Negative); OPIATES Negative (Negative); PCP Negative (Negative); THC Negative (Negative)
--- NOTE | 2019-03-26 11:29 | EKG ---
[place] [address] ELECTROCARDIOGRAM REPORT Name: MIHIR GUARDADOROLD Sandra Room: [facility]#: [id number] Admission: 03/25/19 Attend Phys: Discharge: Date of : 31 Report #: [id number] THIS REPORT FOR: //name// [facility] ED Test Date: 2019-03-25 Test Time: 19:41:50 Pat Name: KATJA GUARDADO Department: Room: Gender: M Dye Winch Operator: RILEY : 1930 Requested By: Liliana Otoole Order Number: [id number] MD: Demarcus Gallardo Measurements Intervals [place] Rate: 62 P: -32 MN: 190 QRS: -63 QRSD: 133 T: 54 QT: 437 QTc: 444 Interpretive Statements 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
--- NOTE | 2019-03-26 15:16 | NUR ---
CALLED BY ER/. PT.HAS BEEN EVAL BY [facility]. THEY RECOMMENDED [facility]. [facility] WILL ACCEPT BUT NEED HIS DPOA. CANNOT LOCATE. SHE HAS CALLED HER EVENT DECORATOR AND DESIGNER BUT THEY HAVE NOT RESPONDED. CM DID NOT FIND ONE IN PERCEPTIVE CONTENT IN COMPUTER. CM CALLED OFFICE. THEY DID NOT HAVE ONE ON FILE. PT.AT [facility] [place] . CM CALLED THEM AND THEY DO NOT HAVE ONE ON FILE EITHER. NOTIFIED [facility] NG.
[2019-03-26 17:58] VITALS: BP 139/62
== END 2019-03-26 17:58 ==
LOC: M.ERS 17:35
PROVIDERS: Family Medicine; Personal Emergency Response Attendant
DX: F03.90 Unspecified dementia, unspecified severity, without behavioral disturbance, psychotic disturbance, mood disturbance, and anxiety (principal); F63.81 Intermittent explosive disorder; R45.6 Violent behavior; E78.5 Hyperlipidemia, unspecified; I10 Essential (primary) hypertension; I48.91 Unspecified atrial fibrillation; Z86.2 Personal history of diseases of the blood and blood-forming organs and certain disorders involving the immune mechanism

== ENCOUNTER 2019-04-22 12:31 | Inpatient (IN) | payer OTHER ==
[~2019-04-22] VITALS: Ht 162.6 cm; Wt 60.8 kg
[~2019-04-22 12:31] MED LIST changes: +ASA5UEC PO; +FINASTERIDE5 MG PO; +IRON325 PO; +NAMZARIC 14 MG1 EACH PO; +REMERON 30 MG T30 M1 PO; +SENNA-TIME S T1 EACH PO; +VITAMIN D2000 UNIT PO; +ZYPREXA 5 MG TAB5 M1 PO
[2019-04-22 12:35] VITALS: BP 172/57
[2019-04-22 12:50] LABS: ABSOLUTE EOSINOPHILS 0.1 thou/uL (0.0-0.7); ABSOLUTE LYMPHOCYTES 0.7 thou/uL (0.8-5.3); ABSOLUTE MONOCYTES 0.6 thou/uL (0.0-1.2); ABSOLUTE NEUTROPHILS 2.5 thou/uL (1.6-8.1); BASOPHILS 0.6 %; EOSINOPHILS 2.4 %; HEMATOCRIT 31.3 % (42.0-52.0); HEMOGLOBIN 10.7 gm/dL (14.0-18.0); LYMPHOCYTES 18.3 %; MCH 31.3 pg (26.0-34.0); MCHC 34.3 g/dL (28.0-37.0); MCV 91.1 fL (80.0-100.0); MONOCYTES 14.4 %; MPV 8.2 fl. (7.2-11.1); NUCLEATED RBCS 0 /100WBC; PLATELET COUNT* 137 thou/uL (150-400); POLYS 64.3 %; RBC 3.43 mil/uL (4.50-6.00); RDW-CV 13.7 % (10.5-14.5); WBC 3.9 thou/uL (4.0-11.0)
[2019-04-22 13:01] LABS: APTT 29.4 Seconds (25.0-31.3)
[2019-04-22 13:13] LABS: ANION GAP 5 mmol/L (7-16); BUN 20 mg/dL (7-18); CALCIUM 9.8 mg/dL (8.5-10.1); CHLORIDE 102 mmol/L (98-107); CO2 28 mmol/L (21-32); GLUCOSE 126 mg/dL (70-99); POTASSIUM 4.7 mmol/L (3.5-5.1); SODIUM 135 mmol/L (136-145)
[2019-04-22 13:27] LABS: ALBUMIN 3.4 g/dL (3.4-5.0); ALKALINE PHOSPHATASE 126 U/L (46-116); CK-MB MASS 2.6 ng/mL (<0.5-3.6); NT-PRO BRAIN NAT PEPTIDE 450 pg/mL (<300); SGOT 24 U/L (15-37); SGPT 22 U/L (30-65); TOTAL BILIRUBIN 0.9 mg/dL (<0.1-1.0); TOTAL PROTEIN 7.1 g/dL (6.4-8.2); TROPONIN-I LEVEL <0.06 ng/mL (<0.06)
[2019-04-22 14:35] VITALS: BP 156/76
[2019-04-22 15:15] VITALS: BP 169/69
[2019-04-22 15:54] LABS: URINE BILIRUBIN NEGATIVE (Negative); URINE BLOOD NEGATIVE (Negative); URINE CLARITY CLEAR; URINE COLOR YELLOW; URINE GLUCOSE-RANDOM NEGATIVE (Negative); URINE KETONES NEGATIVE (Negative); URINE LEUKOCYTES-REFLEX NEGATIVE (Negative); URINE NITRITE-REFLEX NEGATIVE (Negative); URINE PROTEIN NEGATIVE (Negative); URINE UROBILINOGEN 0.2 E.U./dl (0.2-1.0)
[2019-04-22 16:00] VITALS: BP 197/73
[2019-04-22 16:13] LABS: AMP/METHAMP Negative (Negative); BARBITURATES Negative (Negative); BENZODIAZEPINES Negative (Negative); COCAINE Negative (Negative); METHADONE Negative (Negative); OPIATES Negative (Negative); PCP Negative (Negative); THC Negative (Negative)
--- NOTE | 2019-04-22 18:02 | EKG ---
[place] [address] ELECTROCARDIOGRAM REPORT Name: KATJA GUARDADO Room: [address] ADM IN M.R.#: [id number] Admission: 04/22/19 Attend Phys: Chilo Melo MD Discharge: Date of : 31 Report #: [id number] THIS REPORT FOR: //name// [facility] ED Test Date: 2019-04-22 Test Time: 12:39:22 Pat Name: KATJA GUARDADO Department: Room: [facility] Gender: M Admission Nurse Coordinator: : 1930 Requested By: Wilfredo Caraballo Order Number: [id number] MD: Olivier Rodriguez Measurements Intervals [place] Rate: 81 P: 21 [place]: 190 QRS: -64 QRSD: 134 T: 41 QT: 421 QTc: 489 Interpretive Statements Sinus rhythm RBBB and LAFB Compared to ECG 03/25/2019 19:41:50 Myocardial infarct finding no longer present Electronically Signed On 04-22-2019 18:02:31 CDT by Olivier Rodriguez [email or web address] <ELECTRONICALLY SIGNED> By: Olivier Rodriguez MD, [facility] 04/22/19 1802 1239 1239 Olivier Rodriguez MD, [facility] /EPI
--- NOTE | 2019-04-22 18:07 | NUR ---
PT ARRIVED TO ROOM 214 AT APPROX 1530 FROM ER. PT ALERT, ONLY ORIENTED TO SELF. PT PLEASANTLY CONFUSED. FAMILY AT BEDSIDE, ADMISSON DONE WITH THEIR HELP. PT DENIES PAIN. ON RA, SATS 98%, BP SLIGHTLY ELEVATED, NOTIFIED. HOME MEDS REORDERED. FALL PRECAUTIONS IN PLACE. CALL LIGHT IN REACH, PT ROUNDED ON FREQUENTLY, ROOM CLOSE TO NURSES STATION FOR [facility]. WILL CONTINUE TO MONITOR.
[2019-04-22 18:26] VITALS: BP 162/57
[2019-04-22 20:00] VITALS: BP 178/64
[2019-04-23] VITALS: BP 102/29; BP 146/58
--- NOTE | 2019-04-23 01:29 | NUR ---
PT SLEEPING AROUSES EASILY. PT REFUSED HS MEDICATIONS. SEVERAL ATTEMPTS MADE WITH DIFFERENT NURSED. PT WOULD NOT GIVE A REASON TO WHY. TELEMETRY SHOWS SR BBB. TURN Q 2 HRS. INCONTINENT OF URINE.
[2019-04-23 04:00] VITALS: BP 141/53
[2019-04-23 04:30] LABS: ABSOLUTE EOSINOPHILS 0.1 thou/uL (0.0-0.7); ABSOLUTE LYMPHOCYTES 0.6 thou/uL (0.8-5.3); ABSOLUTE MONOCYTES 0.5 thou/uL (0.0-1.2); ABSOLUTE NEUTROPHILS 2.9 thou/uL (1.6-8.1); BASOPHILS 0.6 %; EOSINOPHILS 1.9 %; HEMATOCRIT 28.9 % (42.0-52.0); LYMPHOCYTES 14.4 %; MCH 31.5 pg (26.0-34.0); MCHC 34.6 g/dL (28.0-37.0); MCV 91.1 fL (80.0-100.0); MPV 8.8 fl. (7.2-11.1); NUCLEATED RBCS 0 /100WBC; PLATELET COUNT* 129 thou/uL (150-400); POLYS 71.1 %; RBC 3.17 mil/uL (4.50-6.00); RDW-CV 13.9 % (10.5-14.5); WBC 4.1 thou/uL (4.0-11.0)
[2019-04-23 04:50] LABS: CALCIUM 9.2 mg/dL (8.5-10.1); MAGNESIUM 1.6 mg/dL (1.8-2.4); POTASSIUM 4.1 mmol/L (3.5-5.1)
[2019-04-23 07:52] VITALS: BP 181/72
--- NOTE | 2019-04-23 08:51 | NUR ---
ASSUMED CARE OF PT THIS AM AROUND 07- WATER SUPERINTENDENT IN PLACE ORDERED, TRACING SR WITH BBB- UPON ASSESSMENT PT NOTED TO BE RESTING IN BED, EYES CLOSED- PT ARROUSABLE BUT NOT TALKING THIS AM- KIANA- PT A&O X1 WITH NOTED CONFUSSION R/T DEMENTIA- WHEN GIVING MEDICATIONS THIS AM CRUSHED IN APPLESAUSE PT NOTED TO SPIT OUT, NOTED TO DO SAME WHEN GIVING WATER WELL- INCONTINENT OF BOWEL AND BLADDER- Q2 HOUR TURNS IN PLACE INDICATED- DIMINISHED LUNG SOUNDS NOTED, RESP EVEN AND UN-LABORED- VSS, O2 SAT 97% ON RA- ABD SOFT/ROUND/NON-TENDER, BS X4 QUADS- RQ COLOSTOMY NOTED WITH BROWN/YELLOW LOOSE STOOL NOTED- IV NOTED TO RIGHT AC INTACT, IVF INFUSSING PRESCIBED- REFUSED BREAKFAST THIS AM- CALL LIGHT AND PERSONAL BELONGINGS WITH IN REACH- BED ALARM IN PLACE AND WORKING FOR PT SAFETY/NEEDS- HOURLY ROUNDS IN PLACE- ALL NEEDS MET AT THIS TIME-TM
--- NOTE | 2019-04-23 10:56 | NUR ---
CM spoke with Pt's via phone. Pt is receiving skilled rehab at [facility], with the plan to transition to LTC once skilled is complete. BRENDA spoke with Jody at [facility], she informed that Pt has only resided there for a few days, post being discharged from [facility]. Per , Pt was able to ambulate prior to dc to [facility], but is now requiring a wc for mobility. Per Jody, Pt does have a tendency to attempt to get up and walk on his own. Per Jody, Pt has been taking his medications as prescribed. Goal is for Pt to return to [facility] SNF at dc, Pt will need insurance auth obtained prior to dc, CM to fax referrals once therapy evals completed. Following. [facility] p:[phone], f:[phone]
[2019-04-23 12:15] VITALS: BP 170/58
--- NOTE | 2019-04-23 16:05 | NUR ---
PT CURRENTLY UP RESTING IN BED SIDE RECLINER- FINGERNAIL FORMER IN PLACE ORDERED, TRACING SR- IV TO RIGHT AC INTACT AND SL- IVF NOTED TO BE D/C'D THIS SHIFT- FAIR PO INTAKE NOTED THIS SHIFT WITH LUNCH- MG NOTED AT 1.6 THIS AM WITH ORDERS NOTED FOR IV MAG X1, AND GIVEN THIS SHIFT PRESCIBED- PT PARTICIPATING IN THERAPIES THIS SHIFT PRESCIBED- EEG COMPLETED THIS SHIFT ORDERED, RESULTS NOTED IN MEDITECH- HOURLY ROUNDS IN PLACE R/T SAFETY/NEEDS- CHAIR ALARM IN PLACE AND WORKING FOR PT SAFETY- ALL NEEDS MET AT THIS TIME-[facility]
[2019-04-23 16:30] VITALS: BP 147/64
[2019-04-24 04:00] VITALS: BP 152/66
--- NOTE | 2019-04-24 04:54 | NUR ---
ASSUMED CARE OF PT AT 1900. PT IS VERY CONFUSED AND AGGRESSIVE AT TIMES. VSS. PERRLA. NO COMPLAINTS OF PAIN. STEADY GAIT. PT IS IN SINUS RYTHM ON THE TELEMETRY. PT IS RESTING COMFORTABLY IN BED. RESPIRATIONS ARE EVEN AND NOLABORED. WILL CONTINUE TO MONITOR PT.
--- NOTE | 2019-04-24 08:21 | NUR ---
Faxed referral to [facility] and asked that they initiate ins auth, anticipate dc soon.
--- NOTE | 2019-04-24 11:36 | NUR ---
Pt discharging back to [facility] today. Updated Pt's . Chart copied. Nurse report number is [phone]. Red Letter to corn picker and transport between 3-315 today.
[2019-04-24 11:52] VITALS: BP 119/52
[2019-04-24] MEDS ORDERED: ZYPREXA 5 MG TAB5 M1 PO (12:26)
[2019-04-24] MEDS ORDERED: FINASTERIDE5 MG PO (13:12)
[2019-04-24 13:55] VITALS: BP 119/52
--- NOTE | 2019-04-27 14:40 | EEG ---
[address] [address] EEG STUDY REPORT Name: KATJA GUARDADO Room: [address] IN M.R.#: [id number] Admission: 04/22/19 Attend Phys: Chilo Melo MD Discharge: 04/24/19 Date of : 32 Report #: [id number] THIS REPORT FOR: //name// CC: Hong Jovonyoel Chilo Melo DATE OF SERVICE: 04/23/2019 This patient is being evaluated for altered mental status. EEG was done by placing the electrode by standard 10-20 system of electrode placement. Both referential and sequential montages were used for recording. Background activity in this patient's EEG is about 9 Hz and 30 microvolt. This patient went to sleep and that was associated with bilateral slowing and vertex sharp waves. Photic stimulation was unremarkable. Throughout the record, no active epileptiform activity was noticed. IMPRESSION: This patient's EEG is intermixed with theta range slowing on both sides. That is a nonspecific abnormality, which can occur with encephalopathy, effect of psychotropic medication, dementia, etc. Clinical finding is relatively mild compared to the patient's age of 88 and therefore, clinical correlation is recommended. No active epileptiform activity was noticed. <ELECTRONICALLY SIGNED> By: Hardeep Reno MD 04/27/19 1440 1407 1415Hardeep Reno MD /alexis
== END 2019-04-24 15:50 | DRG 92 ==
LOC: M.ERS 12:31 → M.TBA-ER 13:34 → M.2W 13:34
PROVIDERS: Family Medicine; ADMIT Family Medicine
DX: G92 Toxic encephalopathy (principal); D68.59 Other primary thrombophilia; D61.818 Other pancytopenia; R65.10 Systemic inflammatory response syndrome (SIRS) of non-infectious origin without acute organ dysfunction; T50.995A Adverse effect of other drugs, medicaments and biological substances, initial encounter; F03.90 Unspecified dementia, unspecified severity, without behavioral disturbance, psychotic disturbance, mood disturbance, and anxiety; I48.91 Unspecified atrial fibrillation; E86.0 Dehydration; Z93.3 Colostomy status; Z85.038 Personal history of other malignant neoplasm of large intestine; Z91.19 Patient's noncompliance with other medical treatment and regimen; Z98.49 Cataract extraction status, unspecified eye; Z87.891 Personal history of nicotine dependence; Z79.82 Long term (current) use of aspirin; Z79.899 Other long term (current) drug therapy; Y92.89 Other specified places as the place of occurrence of the external cause

== ENCOUNTER 2019-05-12 02:06 | Emergency (ER) | payer OTHER ==
[~2019-05-12] VITALS: Ht 172.7 cm; Wt 68.0 kg
[2019-05-12 03:16] LABS: ABSOLUTE EOSINOPHILS 0.1 thou/uL (0.0-0.7); ABSOLUTE LYMPHOCYTES 1.1 thou/uL (0.8-5.3); ABSOLUTE MONOCYTES 0.5 thou/uL (0.0-1.2); ABSOLUTE NEUTROPHILS 2.4 thou/uL (1.6-8.1); BASOPHILS 1.1 %; EOSINOPHILS 3.3 %; HEMATOCRIT 31.3 % (42.0-52.0); HEMOGLOBIN 10.6 gm/dL (14.0-18.0); LYMPHOCYTES 26.5 %; MCH 31.5 pg (26.0-34.0); MCHC 33.9 g/dL (28.0-37.0); MONOCYTES 12.7 %; MPV 8.3 fl. (7.2-11.1); NUCLEATED RBCS 0 /100WBC; PLATELET COUNT* 152 thou/uL (150-400); POLYS 56.4 %; RBC 3.37 mil/uL (4.50-6.00); RDW-CV 14.3 % (10.5-14.5); WBC 4.2 thou/uL (4.0-11.0)
[2019-05-12 03:37] LABS: CALCIUM 9.7 mg/dL (8.5-10.1); CREATININE 0.9 mg/dL (0.6-1.3); POTASSIUM 4.5 mmol/L (3.5-5.1)
[2019-05-12 03:42] LABS: ALBUMIN 2.2 g/dL (3.4-5.0); TOTAL BILIRUBIN 0.5 mg/dL (<0.1-1.0); TOTAL PROTEIN 6.9 g/dL (6.4-8.2)
[2019-05-12 04:26] LABS: URINE BILIRUBIN NEGATIVE (Negative); URINE BLOOD NEGATIVE (Negative); URINE CLARITY CLEAR; URINE COLOR YELLOW; URINE GLUCOSE-RANDOM NEGATIVE (Negative); URINE KETONES NEGATIVE (Negative); URINE LEUKOCYTES-REFLEX TRACE (Negative); URINE NITRITE-REFLEX NEGATIVE (Negative); URINE PROTEIN NEGATIVE (Negative); URINE SPECIFIC GRAVITY <= 1.005 (1.005-1.030); URINE UROBILINOGEN 0.2 E.U./dl (0.2-1.0)
[2019-05-12 04:39] LABS: CASTS None Seen /LPF (None Seen); SQUAMOUS 0-3 Few /LPF (0-3)
[2019-05-12 04:41] LABS: BACTERIA-REFLEX 1-9 Few /HPF (None Seen); CRYSTALS None Seen /LPF (None Seen); URINE RBC None Seen /HPF (0-2); URINE WBC-REFLEX 6-15 Few /HPF (0-5)
[2019-05-12] MEDS ORDERED: FLAGYL 250 MG250 MG PO (04:43)
[2019-05-12 06:19] VITALS: BP 126/46
--- NOTE | 2019-05-12 11:41 | EKG ---
[place] [address] ELECTROCARDIOGRAM REPORT Name: MIHIR GUARDADOROLD Sandra [id number] Admission: 05/12/19 Attend Phys: Discharge: 05/12/19 Date of : 32 Report #: [id number] THIS REPORT FOR: //name// [facility] ED Test Date: 2019-05-12 Test Time: 03:54:37 Pat Name: KATJA GUARDADO Department: Room: Gender: M Pipe Recovery Specialist: [place] : 1930 Requested By: Marielena Moran Order Number: [id number] MD: Raudel Antoine Measurements Intervals [place] Rate: 72 P: 0 SD: 202 QRS: -68 QRSD: 137 T: 58 QT: 443 QTc: 485 Interpretive Statements Sinus rhythm RBBB Nonspecific IVCD with LAD Compared to ECG 04/22/2019 12:39:22 no change Electronically Signed On 05-12-2019 11:41:31 CDT by Raudel Antoine [email or web address] <ELECTRONICALLY SIGNED> By: Raudel Antoine MD, [facility] 05/12/19 1141 0354 035 Raudel Antoine MD, [facility] /EPI
== END 2019-05-12 06:28 | disposition home or self-care (01) ==
LOC: M.ERS 02:06
PROVIDERS: Emergency Medicine
DX: K52.9 Noninfective gastroenteritis and colitis, unspecified (principal); F03.90 Unspecified dementia, unspecified severity, without behavioral disturbance, psychotic disturbance, mood disturbance, and anxiety; I48.91 Unspecified atrial fibrillation; E78.5 Hyperlipidemia, unspecified; Z85.038 Personal history of other malignant neoplasm of large intestine; Z90.49 Acquired absence of other specified parts of digestive tract

== ENCOUNTER 2019-05-14 01:02 | Emergency (ER) | payer OTHER ==
[~2019-05-14] VITALS: Ht 170.2 cm; Wt 64.5 kg
[~2019-05-14 01:02] MED LIST changes: +FLAGYL 250 MG250 MG PO
[2019-05-14] MEDS ORDERED: ZYPREXA 5 MG TAB5 M1 PO (01:13)
[2019-05-14 01:21] LABS: ABSOLUTE EOSINOPHILS 0.2 thou/uL (0.0-0.7); ABSOLUTE LYMPHOCYTES 1.3 thou/uL (0.8-5.3); ABSOLUTE MONOCYTES 0.7 thou/uL (0.0-1.2); ABSOLUTE NEUTROPHILS 3.6 thou/uL (1.6-8.1); BASOPHILS 0.5 %; EOSINOPHILS 2.7 %; HEMATOCRIT 33.3 % (42.0-52.0); HEMOGLOBIN 11.2 gm/dL (14.0-18.0); LYMPHOCYTES 22.1 %; MCH 31.5 pg (26.0-34.0); MCHC 33.8 g/dL (28.0-37.0); MCV 93.2 fL (80.0-100.0); MONOCYTES 12.1 %; NUCLEATED RBCS 0 /100WBC; PLATELET COUNT* 165 thou/uL (150-400); POLYS 62.6 %; RBC 3.57 mil/uL (4.50-6.00); RDW-CV 14.4 % (10.5-14.5); WBC 5.7 thou/uL (4.0-11.0)
[2019-05-14 01:29] LABS: CALCIUM 9.6 mg/dL (8.5-10.1); POTASSIUM 4.6 mmol/L (3.5-5.1)
[2019-05-14 01:39] LABS: ALBUMIN 3.4 g/dL (3.4-5.0); TOTAL BILIRUBIN 0.5 mg/dL (<0.1-1.0); TOTAL PROTEIN 6.7 g/dL (6.4-8.2)
[2019-05-14 05:19] VITALS: BP 142/66
== END 2019-05-14 06:12 | disposition home or self-care (01) ==
LOC: M.ERS 01:02
PROVIDERS: Emergency Medicine
DX: S02.2XXA Fracture of nasal bones, initial encounter for closed fracture (principal); F03.90 Unspecified dementia, unspecified severity, without behavioral disturbance, psychotic disturbance, mood disturbance, and anxiety; R41.0 Disorientation, unspecified; I48.91 Unspecified atrial fibrillation; E78.5 Hyperlipidemia, unspecified; Z90.49 Acquired absence of other specified parts of digestive tract; Z85.038 Personal history of other malignant neoplasm of large intestine; W18.39XA Other fall on same level, initial encounter; Y93.89 Activity, other specified; Y92.89 Other specified places as the place of occurrence of the external cause; Y99.8 Other external cause status

== ENCOUNTER 2019-05-17 12:53 | Emergency (ER) | payer OTHER ==
[~2019-05-17] VITALS: Ht 172.7 cm; Wt 65.0 kg
[2019-05-17] MEDS ORDERED: UNICOMPLEX M TA1 TA1 PO (13:05)
[2019-05-17 13:27] LABS: ABSOLUTE EOSINOPHILS 0.1 thou/uL (0.0-0.7); ABSOLUTE MONOCYTES 0.4 thou/uL (0.0-1.2); ABSOLUTE NEUTROPHILS 2.5 thou/uL (1.6-8.1); BASOPHILS 0.6 %; EOSINOPHILS 2.2 %; HEMATOCRIT 30.9 % (42.0-52.0); HEMOGLOBIN 10.6 gm/dL (14.0-18.0); LYMPHOCYTES 25.4 %; MCH 31.7 pg (26.0-34.0); MCHC 34.3 g/dL (28.0-37.0); MCV 92.2 fL (80.0-100.0); MONOCYTES 10.4 %; MPV 7.7 fl. (7.2-11.1); NUCLEATED RBCS 0 /100WBC; PLATELET COUNT* 152 thou/uL (150-400); POLYS 61.4 %; RBC 3.35 mil/uL (4.50-6.00); RDW-CV 14.4 % (10.5-14.5); WBC 4.1 thou/uL (4.0-11.0)
[2019-05-17 13:32] LABS: CALCIUM 9.9 mg/dL (8.5-10.1); CREATININE 0.8 mg/dL (0.6-1.3); POTASSIUM 4.3 mmol/L (3.5-5.1)
[2019-05-17 13:43] LABS: ALBUMIN 3.4 g/dL (3.4-5.0); TOTAL BILIRUBIN 0.5 mg/dL (<0.1-1.0); TOTAL PROTEIN 6.7 g/dL (6.4-8.2)
[2019-05-17 16:13] VITALS: BP 177/75
== END 2019-05-17 16:13 | disposition home or self-care (01) ==
LOC: M.ERS 12:53
PROVIDERS: Personal Emergency Response Attendant
DX: R41.82 Altered mental status, unspecified (principal); I48.91 Unspecified atrial fibrillation; F03.90 Unspecified dementia, unspecified severity, without behavioral disturbance, psychotic disturbance, mood disturbance, and anxiety; E78.5 Hyperlipidemia, unspecified; Z98.890 Other specified postprocedural states; Z93.3 Colostomy status; Z86.2 Personal history of diseases of the blood and blood-forming organs and certain disorders involving the immune mechanism; Z85.038 Personal history of other malignant neoplasm of large intestine